=== PATIENT | male | born 1995 | race Caucasian/White ===

== ENCOUNTER 2018-01-12 14:04 | Emergency (ER) | payer OTHER ==
[~2018-01-12] VITALS: Ht 162.6 cm; Wt 54.4 kg
[~2018-01-12 14:04] MED LIST: FLEXERIL PO; IBUPROFEN 800800 M1 PO
[2018-01-12 14:09] VITALS: BP 135/66
[2018-01-12] MEDS ORDERED: ERYTHROMYCIN E3.5 G2 OPHTHALMIC (14:41)
== END 2018-01-12 14:51 | disposition home or self-care (01) ==
LOC: M.ERS 14:04
DX: S05.01XA Injury of conjunctiva and corneal abrasion without foreign body, right eye, initial encounter (principal); Z88.0 Allergy status to penicillin; W22.8XXA Striking against or struck by other objects, initial encounter; Y93.89 Activity, other specified; Y92.89 Other specified places as the place of occurrence of the external cause; Y99.8 Other external cause status

== ENCOUNTER 2018-07-22 11:33 | Emergency (ER) | payer OTHER ==
[~2018-07-22] VITALS: Ht 162.6 cm; Wt 59.0 kg
[~2018-07-22 11:33] MED LIST changes: +ERYTHROMYCIN E3.5 G2 OPHTHALMIC
[2018-07-22 11:43] VITALS: BP 127/79
[2018-07-22] MEDS ORDERED: IBUPROFEN 200200 M1 PO (11:45)
[2018-07-22] MEDS ORDERED: BACTRIM DS TAB1 EAC1 PO (11:54)
== END 2018-07-22 12:10 | disposition home or self-care (01) ==
LOC: M.ERS 11:33
DX: J32.9 Chronic sinusitis, unspecified (principal); R42 Dizziness and giddiness; F17.210 Nicotine dependence, cigarettes, uncomplicated; Z88.1 Allergy status to other antibiotic agents

== ENCOUNTER 2018-08-15 16:02 | Emergency (ER) | payer OTHER ==
[~2018-08-15] VITALS: Ht 165.1 cm; Wt 59.0 kg
[~2018-08-15 16:02] MED LIST changes: +BACTRIM DS TAB1 EAC1 PO; +IBUPROFEN 200200 M1 PO
[2018-08-15 16:09] VITALS: BP 117/79
[2018-08-15] MEDS ORDERED: CLEOCIN HCL150 MG PO (16:23)
[2018-08-15] MEDS ORDERED: NORCO 5-325 TA1 EACH PO (16:23)
== END 2018-08-15 16:26 | disposition home or self-care (01) ==
LOC: M.ERS 16:02
DX: S02.5XXA Fracture of tooth (traumatic), initial encounter for closed fracture (principal); F17.210 Nicotine dependence, cigarettes, uncomplicated; Z88.1 Allergy status to other antibiotic agents; X58.XXXA Exposure to other specified factors, initial encounter; Y93.89 Activity, other specified; Y92.89 Other specified places as the place of occurrence of the external cause; Y99.8 Other external cause status

== ENCOUNTER 2021-10-26 08:42 | Emergency (ER) | payer OTHER ==
[~2021-10-26] VITALS: Ht 162.6 cm; Wt 54.4 kg
[~2021-10-26 08:42] MED LIST changes: +CLEOCIN HCL150 MG PO; +NORCO 5-325 TA1 EACH PO
[2021-10-26 09:58] LABS: INFLUENZA A ANTIGEN Negative (Negative); INFLUENZA B ANTIGEN Negative (Negative)
[2021-10-26] MEDS ORDERED: ZOFRAN ODT4 MG PO (10:24)
[2021-10-26] MEDS ORDERED: FLEXERIL PO (10:24)
[2021-10-26 10:35] VITALS: BP 136/87
== END 2021-10-26 10:36 | disposition home or self-care (01) ==
LOC: M.ERS 08:42
PROVIDERS: Emergency Medicine Emergency Medical Services
DX: U07.1 COVID-19 (principal); F17.210 Nicotine dependence, cigarettes, uncomplicated; Z88.1 Allergy status to other antibiotic agents